=== PATIENT | male | born 1950 | race African-American/Black ===

== ENCOUNTER 2017-11-01 18:35 | Emergency (ER) | payer BC, MEDICARE ==
[~2017-11-01] VITALS: Ht 182.9 cm; Wt 79.0 kg
[2017-11-01 19:23] VITALS: BP 120/64
== END 2017-11-02 | disposition left against medical advice (07) ==
LOC: ER 18:35
DX: J11.1 Influenza due to unidentified influenza virus with other respiratory manifestations (principal); Z53.21 Procedure and treatment not carried out due to patient leaving prior to being seen by health care provider

== ENCOUNTER 2022-10-04 22:10 | Inpatient (IN) | payer MEDICARE ==
[~2022-10-04] VITALS: Ht 182.9 cm; Wt 67.4 kg
[2022-10-04 23:48] LABS: BASOPHILS % 0.6 % (0.0-2.0); EOSINOPHILS % 1.5 % (0.0-5.0); HEMATOCRIT. 21.5 % (42.0-52.0); HEMOGLOBIN. 7.3 g/dL (14.0-18.0); LYMPHOCYTES % 9.3 % (20.0-50.0); MEAN CORPUSCULAR HEMOGLOBIN 31.2 pg (28.0-32.0); MEAN CORPUSCULAR VOLUME 91.4 fL (80.0-94.0); MEAN PLATELET VOLUME 7.2 fl (7.4-10.4); MONOCYTES % 7.7 % (2.0-8.0); NEUTROPHILS % 80.9 % (40.0-76.0); PLATELET 217 x1000/uL (130-400); RED BLOOD CELL COUNT 2.35 mill/uL (4.7-6.1); RED CELL DISTRIBUTION WIDTH 15.4 % (11.6-14.6)
[2022-10-05] VITALS (14 sets, daily range): BP systolic 101–126; BP diastolic 57–86
[2022-10-05] MEDS ORDERED: CLONIDINE 0.1MG TABLET PO PRN (05:15)
[2022-10-05] MEDS ORDERED: ONDANSETRON HCL 4MG/2ML INJ IV PRN (05:15)
[2022-10-05] MEDS ORDERED: HYDROCODONE/ACETAMINOPHEN 5/325MG TABLET PO PRN (05:15)
[2022-10-05] MEDS ORDERED: DOCUSATE SODIUM 100MG CAPSULE PO PRN (05:15)
[2022-10-05] MEDS ORDERED: MAGNESIUM/ALUMINUM HYDROXIDE/SIMETHICONE 30ML UDC PO PRN (05:15)
[2022-10-05] MEDS ORDERED: IPRATROPIUM/ALBUTEROL 0.5-3(2.5)MG/3ML NEB HHN PRN (05:15)
[2022-10-05] MEDS ORDERED: ACETAMINOPHEN 325MG TABLET PO PRN ×2 (05:15)
[2022-10-05] MEDS ORDERED: GUAIFENESIN 200MG/10ML SUGAR FREE UDC PO PRN (05:15)
[2022-10-05] MEDS ORDERED: NALOXONE HCL 0.4MG/ML VIAL IV PRN (06:00)
[2022-10-05] MEDS ORDERED: FAMOTIDINE 20MG TABLET PO NR (09:36)
[2022-10-05 12:55] LABS: INR 1.1; PROTHROMBIN TIME 11.5 sec (9.6-11.0)
[2022-10-05] MEDS ORDERED: FAMOTIDINE 20MG TABLET PO SCH (13:00)
[2022-10-05 13:25] LABS: FERRITIN 253 ng/mL (22-322)
[2022-10-05 13:37] LABS: HEPATITIS B SURFACE ANTIGEN NEGATIVE
[2022-10-05 19:55] LABS: CHLORIDE 100 mEq/L (98-107)
[2022-10-05 20:36] LABS: CHLORIDE 104 mEq/L (98-107)
[2022-10-05 20:53] LABS: TOTAL IRON BINDING CAPACITY 183 ug/dL (250-450)
[2022-10-05 22:00] LABS: VITAMIN B12 SERUM 1208 pg/mL (211-911)
[2022-10-05] MEDS ORDERED: FERR325T6 PO (23:34)
[2022-10-05] MEDS ORDERED: TOPUD PO (23:34)
[2022-10-05] MEDS ORDERED: CALC667C PO (23:34)
[2022-10-05] MEDS ORDERED: ACET-2708 MT (23:34)
[2022-10-05] MEDS ORDERED: PRED15SO23 PO (23:34)
[2022-10-05] MEDS ORDERED: CLON0.1T PO (23:34)
[2022-10-05] MEDS ORDERED: MEMA10TA55 PO (23:34)
[2022-10-05] MEDS ORDERED: IPRA3AMP31 IH (23:34)
[2022-10-05] MEDS ORDERED: AZAT50TA18 PO (23:34)
[2022-10-05] MEDS ORDERED: FAMO-135 PO (23:34)
[2022-10-05] MEDS ORDERED: RISP1 PO (23:34)
[2022-10-06] VITALS (18 sets, daily range): BP systolic 92–120; BP diastolic 51–78
[2022-10-06 04:25] LABS: LYMPHOCYTES % 14.6 % (20.0-50.0); MEAN CORPUSCULAR HEMOGLOBIN 30.6 pg (28.0-32.0); MEAN CORPUSCULAR VOLUME 90.4 fL (80.0-94.0); MEAN PLATELET VOLUME 7.2 fl (7.4-10.4); MONOCYTES % 6.9 % (2.0-8.0); NEUTROPHILS % 72.5 % (40.0-76.0); PLATELET 206 x1000/uL (130-400); RED BLOOD CELL COUNT 1.53 mill/uL (4.7-6.1); RED CELL DISTRIBUTION WIDTH 15.5 % (11.6-14.6)
[2022-10-06 04:46] LABS: HEMATOCRIT. 13.8 % (42.0-52.0); HEMOGLOBIN. 4.7 g/dL (14.0-18.0)
[2022-10-06 07:48] LABS: CHLORIDE 106 mEq/L (98-107)
[2022-10-06] MEDS: FAMOTIDINE 20MG TABLET PO SCH (08:28)
[2022-10-06 19:26] LABS: *AMPHETAMINES SCREEN URINE NEGATIVE (NEGATIVE); *BARBITURATES SCREEN URINE NEGATIVE (NEGATIVE); *BENZODIAZEPINES SCREEN URINE NEGATIVE (NEGATIVE); *COCAINE SCREEN URINE NEGATIVE (NEGATIVE); CANNABINOID URINE SCREEN NEGATIVE (NEGATIVE); METHADONE URINE SCREEN NEGATIVE (NEGATIVE); OPIATES URINE SCREEN NEGATIVE (NEGATIVE); PHENCYCLIDINE URINE SCREEN NEGATIVE (NEGATIVE)
[2022-10-06 21:13] LABS: HEMATOCRIT 18.4 % (42.0-52.0); HEMOGLOBIN 6.4 g/dL (14.0-18.0)
[2022-10-07] VITALS (16 sets, daily range): BP systolic 101–146; BP diastolic 60–86
[2022-10-07 02:51] LABS: HEMATOCRIT 23.2 % (42.0-52.0); HEMOGLOBIN 7.8 g/dL (14.0-18.0)
[2022-10-07 03:03] LABS: INR 1.1; PROTHROMBIN TIME 11.6 sec (9.6-11.0)
[2022-10-07] MEDS: FAMOTIDINE 20MG TABLET PO SCH (08:28)
[2022-10-07 09:22] LABS: BASOPHILS % 0.8 % (0.0-2.0); EOSINOPHILS % 6.1 % (0.0-5.0); HEMATOCRIT. 24.7 % (42.0-52.0); HEMOGLOBIN. 8.6 g/dL (14.0-18.0); LYMPHOCYTES % 12.3 % (20.0-50.0); MEAN CORPUSCULAR HEMOGLOBIN 30.7 pg (28.0-32.0); MEAN CORPUSCULAR VOLUME 88.4 fL (80.0-94.0); MEAN PLATELET VOLUME 6.8 fl (7.4-10.4); MONOCYTES % 6.8 % (2.0-8.0); PLATELET 215 x1000/uL (130-400); RED CELL DISTRIBUTION WIDTH 15.8 % (11.6-14.6)
[2022-10-07 09:57] LABS: PHOSPHORUS 3.4 mg/dL (2.5-4.9)
[2022-10-07] MEDS ORDERED: BISACODYL 10MG SUPP PR NR (14:00)
[2022-10-07] MEDS: LACTULOSE 20G/30ML UDC PO SCH ×3 (14:00→21:33)
[2022-10-07 16:18] LABS: HEMATOCRIT 24.2 % (42.0-52.0); HEMOGLOBIN 8.5 g/dL (14.0-18.0)
[2022-10-07] MEDS: RISPERIDONE 1MG TABLET PO SCH (21:00)
[2022-10-08] VITALS: BP 128/71
[2022-10-08] MEDS: LACTULOSE 20G/30ML UDC PO SCH ×3 (06:00→22:00)
[2022-10-08 08:00] VITALS: BP 178/86
[2022-10-08] MEDS: RISPERIDONE 1MG TABLET PO SCH ×2 (09:05→21:00)
[2022-10-08] MEDS: FAMOTIDINE 20MG TABLET PO SCH (09:05)
[2022-10-08 12:00] VITALS: BP 158/86
[2022-10-08 16:00] VITALS: BP 152/84
[2022-10-08] MEDS: VALPROIC ACID 250MG CAPSULE PO SCH (17:26)
[2022-10-08] MEDS ORDERED: TRAZODONE HCL 50MG TABLET PO SCH (21:00)
[2022-10-08] MEDS: AMLODIPINE 5MG TABLET PO SCH (21:00)
[2022-10-09] VITALS: BP 162/97
[2022-10-09 04:00] VITALS: BP 134/77
[2022-10-09] MEDS: LACTULOSE 20G/30ML UDC PO SCH ×2 (05:52→14:00)
[2022-10-09 06:30] VITALS: BP 137/73
[2022-10-09 08:00] VITALS: BP 158/86
[2022-10-09] MEDS: FAMOTIDINE 20MG TABLET PO SCH (09:24)
[2022-10-09] MEDS: AMLODIPINE 5MG TABLET PO SCH (09:25)
[2022-10-09] MEDS: VALPROIC ACID 250MG CAPSULE PO SCH (09:25)
[2022-10-09] MEDS: RISPERIDONE 1MG TABLET PO SCH (09:25)
[2022-10-09] MEDS ORDERED: VALP250C3 PO (11:16)
[2022-10-09] MEDS ORDERED: AZAT50TA18 PO (11:16)
[2022-10-09] MEDS ORDERED: SULF1TAB48 PO (11:16)
[2022-10-09] MEDS ORDERED: P20 PO (11:16)
[2022-10-09] MEDS ORDERED: AMLO5TAB88 PO (11:16)
[2022-10-09 12:00] VITALS: BP_SYST 147; BP_SYST 157; BP_DIAS 89
[2022-10-09 14:38] VITALS: BP 147/59
== END 2022-10-09 15:45 | DRG 377 ==
LOC: ER 22:10 → 8WST 10-05 01:46
PROVIDERS: ADMIT Internal Medicine; ATTEND Internal Medicine
PROC: 5A1D70Z Performance of Urinary Filtration, Intermittent, Less than 6 Hours Per Day (ICD-10-PCS; principal; 2022-10-05)
PROC: 30233N1 Transfusion of Nonautologous Red Blood Cells into Peripheral Vein, Percutaneous Approach (ICD-10-PCS; 2022-10-06)
PROC: 30233N1 Transfusion of Nonautologous Red Blood Cells into Peripheral Vein, Percutaneous Approach (ICD-10-PCS; 2022-10-06)
PROC: 5A1D70Z Performance of Urinary Filtration, Intermittent, Less than 6 Hours Per Day (ICD-10-PCS; 2022-10-07)
DX: K57.31 Diverticulosis of large intestine without perforation or abscess with bleeding (principal); E43 Unspecified severe protein-calorie malnutrition; N18.6 End stage renal disease; C78.5 Secondary malignant neoplasm of large intestine and rectum; C25.9 Malignant neoplasm of pancreas, unspecified; I50.32 Chronic diastolic (congestive) heart failure; Z68.1 Body mass index [BMI] 19.9 or less, adult; I82.412 Acute embolism and thrombosis of left femoral vein; E11.52 Type 2 diabetes mellitus with diabetic peripheral angiopathy with gangrene; I13.2 Hypertensive heart and chronic kidney disease with heart failure and with stage 5 chronic kidney disease, or end stage renal disease; N17.9 Acute kidney failure, unspecified; I96 Gangrene, not elsewhere classified; F17.210 Nicotine dependence, cigarettes, uncomplicated; E11.22 Type 2 diabetes mellitus with diabetic chronic kidney disease; F19.10 Other psychoactive substance abuse, uncomplicated; K76.89 Other specified diseases of liver; D63.1 Anemia in chronic kidney disease; F03.90 Unspecified dementia, unspecified severity, without behavioral disturbance, psychotic disturbance, mood disturbance, and anxiety; F10.10 Alcohol abuse, uncomplicated; G47.00 Insomnia, unspecified; I25.10 Atherosclerotic heart disease of native coronary artery without angina pectoris; K59.00 Constipation, unspecified; J44.9 Chronic obstructive pulmonary disease, unspecified; N20.0 Calculus of kidney; Z99.2 Dependence on renal dialysis; Z79.899 Other long term (current) drug therapy; Z78.1 Physical restraint status
CPT/HCPCS: 36415; 71045; 74176; 74181; 80048; 80053; 80076; 80305; 82105; 82140; 82607; 82728; 82746; 83540; 83550; 83735; 83880; 84100; 85014; 85018; 85025; 85044; 85049; 85384; 86301; 86705; 86709; 86803; 86850; 86900; 86920; 87340; 87426; 90935; 93005; 99285; C9803; P9016

== ENCOUNTER 2022-10-11 15:47 | Inpatient (IN) | payer MEDICARE ==
[~2022-10-11] VITALS: Ht 182.9 cm; Wt 63.8 kg
[~2022-10-11 15:47] MED LIST: ACET-2708 MT; AMLO5TAB88 PO; AZAT50TA18 PO; CALC667C PO; CLON0.1T PO; FAMO-135 PO; FERR325T6 PO; IPRA3AMP31 IH; MEMA10TA55 PO; P20 PO; RISP1 PO; SULF1TAB48 PO; VALP250C3 PO
[2022-10-11 16:30] LABS: HEMATOCRIT 23.5 % (42.0-52.0); HEMOGLOBIN 8.1 g/dL (14.0-18.0); MEAN CORPUSCULAR HEMOGLOBIN 30.6 pg (28.0-32.0); PLATELET 291 x1000/uL (130-400); RED BLOOD CELL COUNT 2.63 mill/uL (4.7-6.1)
[2022-10-11] MEDS ORDERED: CLONIDINE 0.1MG TABLET PO PRN (22:00)
[2022-10-11] MEDS ORDERED: ONDANSETRON HCL 4MG/2ML INJ IV PRN (22:00)
[2022-10-11] MEDS ORDERED: IPRATROPIUM/ALBUTEROL 0.5-3(2.5)MG/3ML NEB HHN PRN (22:00)
[2022-10-11] MEDS ORDERED: ACETAMINOPHEN 325MG TABLET PO PRN ×2 (22:00)
[2022-10-11] MEDS ORDERED: HYDROCODONE/ACETAMINOPHEN 5/325MG TABLET PO PRN (22:00)
[2022-10-11] MEDS ORDERED: DOCUSATE SODIUM 100MG CAPSULE PO PRN (22:00)
[2022-10-11] MEDS ORDERED: MAGNESIUM/ALUMINUM HYDROXIDE/SIMETHICONE 30ML UDC PO PRN (22:00)
[2022-10-12] VITALS (17 sets, daily range): BP systolic 96–181; BP diastolic 59–121
[2022-10-12 02:46] LABS: CLARITY URINE CLOUDY (CLEAR); COLOR URINE YELLOW (YELLOW); KETONES URINE TRACE (NEGATIVE); LEUKOCYTE ESTERASE URINE TRACE (NEGATIVE); NITRITE URINE NEGATIVE (NEGATIVE); OCCULT BLOOD URINE 3+ (NEGATIVE); PH URINE 7.5 (4.5-8.0); PROTEIN URINE 3+ (NEGATIVE); SPECIFIC GRAVITY URINE 1.014 (1.005-1.030)
[2022-10-12 03:05] LABS: *AMPHETAMINES SCREEN URINE NEGATIVE (NEGATIVE); *BARBITURATES SCREEN URINE NEGATIVE (NEGATIVE); *BENZODIAZEPINES SCREEN URINE NEGATIVE (NEGATIVE); *COCAINE SCREEN URINE NEGATIVE (NEGATIVE); CANNABINOID URINE SCREEN NEGATIVE (NEGATIVE); METHADONE URINE SCREEN NEGATIVE (NEGATIVE); OPIATES URINE SCREEN NEGATIVE (NEGATIVE); PHENCYCLIDINE URINE SCREEN NEGATIVE (NEGATIVE)
[2022-10-12] MEDS ORDERED: LORAZEPAM 0.5MG TABLET PO NR (03:15)
[2022-10-12] MEDS: GUAIFENESIN 200MG/10ML SUGAR FREE UDC PO PRN ×2 (03:23→15:57)
[2022-10-12 04:44] LABS: CHLORIDE 109 mEq/L (98-107)
[2022-10-12 05:00] LABS: T4 FREE 1.09 ng/dL (0.76-1.46)
[2022-10-12 05:01] LABS: BASOPHILS % 1.3 % (0.0-2.0); EOSINOPHILS % 4.2 % (0.0-5.0); HEMATOCRIT. 22.5 % (42.0-52.0); HEMOGLOBIN. 7.6 g/dL (14.0-18.0); LYMPHOCYTES % 13.1 % (20.0-50.0); MEAN CORPUSCULAR HEMOGLOBIN 30.4 pg (28.0-32.0); MEAN CORPUSCULAR VOLUME 90.3 fL (80.0-94.0); MEAN PLATELET VOLUME 7.7 fl (7.4-10.4); MONOCYTES % 9.8 % (2.0-8.0); NEUTROPHILS % 71.6 % (40.0-76.0); PLATELET 259 x1000/uL (130-400); RED CELL DISTRIBUTION WIDTH 16.3 % (11.6-14.6)
[2022-10-12] MEDS ORDERED: NALOXONE HCL 0.4MG/ML VIAL IV PRN (11:00)
[2022-10-12] MEDS: VALPROIC ACID 250MG CAPSULE PO SCH (19:46)
[2022-10-12] MEDS: CEFTRIAXONE 1,000 MG in DEXTROSE 5% WATER 50 ML IV SCH (20:00)
[2022-10-12] MEDS ORDERED: EPOETIN ALFA-EPBX 4,000 UNIT/ML VIAL SUBCUT SCH (21:00)
[2022-10-12] MEDS: TRAZODONE HCL 50MG TABLET PO SCH (21:24)
[2022-10-13 04:04] VITALS: BP 108/55
[2022-10-13 06:28] LABS: EOSINOPHILS % 2.3 % (0.0-5.0); HEMATOCRIT. 24.3 % (42.0-52.0); HEMOGLOBIN. 8.3 g/dL (14.0-18.0); LYMPHOCYTES % 11.2 % (20.0-50.0); MEAN CORPUSCULAR HEMOGLOBIN 30.3 pg (28.0-32.0); MEAN CORPUSCULAR VOLUME 88.7 fL (80.0-94.0); MEAN PLATELET VOLUME 6.8 fl (7.4-10.4); NEUTROPHILS % 75.5 % (40.0-76.0); PLATELET 226 x1000/uL (130-400); RED BLOOD CELL COUNT 2.74 mill/uL (4.7-6.1); RED CELL DISTRIBUTION WIDTH 15.6 % (11.6-14.6)
[2022-10-13 07:44] LABS: PHOSPHORUS 5.2 mg/dL (2.5-4.9)
[2022-10-13 07:48] LABS: HEPATITIS B SURFACE ANTIGEN NEGATIVE
[2022-10-13 08:00] VITALS: BP 148/66
[2022-10-13] MEDS: VALPROIC ACID 250MG CAPSULE PO SCH (08:24)
[2022-10-13] MEDS: AMLODIPINE 5MG TABLET PO SCH ×2 (08:24→08:25)
[2022-10-13 12:00] VITALS: BP 127/76
[2022-10-13 16:00] VITALS: BP 103/61
[2022-10-13 20:00] VITALS: BP 119/75
[2022-10-13] MEDS: CEFTRIAXONE 1,000 MG in DEXTROSE 5% WATER 50 ML IV SCH (20:46)
[2022-10-13] MEDS: TRAZODONE HCL 50MG TABLET PO SCH (20:46)
[2022-10-14] VITALS (11 sets, daily range): BP systolic 101–140; BP diastolic 56–94
[2022-10-14 06:28] LABS: BASOPHILS % 0.8 % (0.0-2.0); EOSINOPHILS % 2.6 % (0.0-5.0); HEMATOCRIT. 22.3 % (42.0-52.0); HEMOGLOBIN. 7.4 g/dL (14.0-18.0); LYMPHOCYTES % 13.6 % (20.0-50.0); MEAN CORPUSCULAR HEMOGLOBIN 29.5 pg (28.0-32.0); MEAN CORPUSCULAR VOLUME 89.2 fL (80.0-94.0); MEAN PLATELET VOLUME 6.7 fl (7.4-10.4); MONOCYTES % 10.4 % (2.0-8.0); NEUTROPHILS % 72.6 % (40.0-76.0); PLATELET 221 x1000/uL (130-400); RED CELL DISTRIBUTION WIDTH 15.9 % (11.6-14.6)
[2022-10-14 06:31] LABS: PHOSPHORUS 6.2 mg/dL (2.5-4.9)
[2022-10-14] MEDS: VALPROIC ACID 250MG CAPSULE PO SCH (12:14)
[2022-10-14] MEDS: AMLODIPINE 5MG TABLET PO SCH (12:15)
== END 2022-10-14 14:00 | DRG 70 ==
LOC: ER 15:47 → MICUSO 19:41 → EDBEDREQ 19:45 → EDBEDREQTM 19:45 → 3WST 10-12 01:39
PROVIDERS: ADMIT Internal Medicine; ATTEND Internal Medicine
PROC: 5A1D70Z Performance of Urinary Filtration, Intermittent, Less than 6 Hours Per Day (ICD-10-PCS; principal; 2022-10-12)
PROC: 5A1D70Z Performance of Urinary Filtration, Intermittent, Less than 6 Hours Per Day (ICD-10-PCS; 2022-10-14)
DX: G93.41 Metabolic encephalopathy (principal); E43 Unspecified severe protein-calorie malnutrition; N18.6 End stage renal disease; N39.0 Urinary tract infection, site not specified; I13.2 Hypertensive heart and chronic kidney disease with heart failure and with stage 5 chronic kidney disease, or end stage renal disease; I96 Gangrene, not elsewhere classified; M31.30 Wegener's granulomatosis without renal involvement; N17.9 Acute kidney failure, unspecified; I50.32 Chronic diastolic (congestive) heart failure; K76.89 Other specified diseases of liver; K86.9 Disease of pancreas, unspecified; F03.90 Unspecified dementia, unspecified severity, without behavioral disturbance, psychotic disturbance, mood disturbance, and anxiety; K21.9 Gastro-esophageal reflux disease without esophagitis; F17.210 Nicotine dependence, cigarettes, uncomplicated; I77.82 Antineutrophilic cytoplasmic antibody [ANCA] vasculitis; D63.1 Anemia in chronic kidney disease; F10.10 Alcohol abuse, uncomplicated; F14.90 Cocaine use, unspecified, uncomplicated; Z82.49 Family history of ischemic heart disease and other diseases of the circulatory system; Z79.899 Other long term (current) drug therapy; Z99.2 Dependence on renal dialysis; Z91.15 Patient's noncompliance with renal dialysis
CPT/HCPCS: 36415; 71045; 80048; 80053; 80305; 81003; 83735; 84100; 84439; 84443; 85025; 85027; 86705; 86709; 86803; 87340; 87426; 90935; 99291; J0696; J0885; J2405; J7060

== ENCOUNTER 2022-11-08 19:54 | Inpatient (IN) | payer MEDICARE ==
[~2022-11-08] VITALS: Ht 182.9 cm; Wt 66.7 kg
[2022-11-08 21:37] LABS: BASOPHILS % 0.8 % (0.0-2.0); EOSINOPHILS % 6.1 % (0.0-5.0); MEAN CORPUSCULAR HEMOGLOBIN 29.5 pg (28.0-32.0); MEAN CORPUSCULAR VOLUME 89.2 fL (80.0-94.0); MEAN PLATELET VOLUME 6.5 fl (7.4-10.4); MONOCYTES % 8.6 % (2.0-8.0); NEUTROPHILS % 55.5 % (40.0-76.0); PLATELET 251 x1000/uL (130-400); RED BLOOD CELL COUNT 2.37 mill/uL (4.7-6.1); RED CELL DISTRIBUTION WIDTH 18.1 % (11.6-14.6)
[2022-11-08 21:43] LABS: CHLORIDE 100 mEq/L (98-107)
[2022-11-08 21:44] LABS: HEMATOCRIT. 21.1 % (42.0-52.0)
[2022-11-08 21:45] LABS: PROTHROMBIN TIME 10.5 sec (9.6-11.0)
[2022-11-08] MEDS ORDERED: ONDANSETRON HCL 4MG/2ML INJ IV PRN (23:15)
[2022-11-08] MEDS ORDERED: MAGNESIUM/ALUMINUM HYDROXIDE/SIMETHICONE 30ML UDC PO PRN (23:15)
[2022-11-08] MEDS ORDERED: ACETAMINOPHEN 325MG TABLET PO PRN (23:15)
[2022-11-09] VITALS (15 sets, daily range): BP systolic 125–157; BP diastolic 64–91
[2022-11-09] MEDS: ACETAMINOPHEN 325MG TABLET PO PRN (04:12)
[2022-11-09 05:41] LABS: BASOPHILS % 0.8 % (0.0-2.0); EOSINOPHILS % 5.6 % (0.0-5.0); LYMPHOCYTES % 23.4 % (20.0-50.0); MEAN CORPUSCULAR HEMOGLOBIN 29.8 pg (28.0-32.0); MEAN CORPUSCULAR VOLUME 88.5 fL (80.0-94.0); MEAN PLATELET VOLUME 6.2 fl (7.4-10.4); MONOCYTES % 9.1 % (2.0-8.0); NEUTROPHILS % 61.1 % (40.0-76.0); PLATELET 252 x1000/uL (130-400); RED BLOOD CELL COUNT 2.25 mill/uL (4.7-6.1)
[2022-11-09 05:49] LABS: HEMATOCRIT. 19.9 % (42.0-52.0); HEMOGLOBIN. 6.7 g/dL (14.0-18.0)
[2022-11-09 05:52] LABS: TOTAL IRON BINDING CAPACITY 180 ug/dL (250-450)
[2022-11-09 06:02] LABS: T4 FREE 0.85 ng/dL (0.76-1.46)
[2022-11-09] MEDS ORDERED: SEVE800T25 PO (09:18)
[2022-11-09] MEDS ORDERED: LACT10SO30 MT (09:18)
[2022-11-09] MEDS ORDERED: TRAZ-251 PO (09:18)
[2022-11-09] MEDS ORDERED: NALOXONE HCL 0.4MG/ML VIAL IV PRN (09:30)
[2022-11-09] MEDS: AMLODIPINE 5MG TABLET PO SCH (10:06)
[2022-11-09] MEDS ORDERED: DIPHENHYDRAMINE 50MG/ML VIAL IV NR (13:30)
[2022-11-09 14:48] LABS: HEPATITIS B SURFACE ANTIGEN NEGATIVE
[2022-11-09] MEDS: EPOETIN ALFA-EPBX 4,000 UNIT/ML VIAL SUBCUT SCH (21:24)
[2022-11-09] MEDS: FAMOTIDINE 20MG TABLET PO SCH (21:25)
[2022-11-09] MEDS: TRAMADOL 50MG TABLET PO PRN (23:15)
[2022-11-10 01:20] LABS: MEAN CORPUSCULAR HEMOGLOBIN 29.7 pg (28.0-32.0); MEAN CORPUSCULAR VOLUME 88.7 fL (80.0-94.0); PLATELET 256 x1000/uL (130-400); RED BLOOD CELL COUNT 3.05 mill/uL (4.7-6.1); RED CELL DISTRIBUTION WIDTH 17.1 % (11.6-14.6)
[2022-11-10 04:00] VITALS: BP 142/75
[2022-11-10 07:13] LABS: BASOPHILS % 0.6 % (0.0-2.0); EOSINOPHILS % 4.1 % (0.0-5.0); HEMATOCRIT. 24.9 % (42.0-52.0); HEMOGLOBIN. 8.3 g/dL (14.0-18.0); LYMPHOCYTES % 21.1 % (20.0-50.0); MEAN CORPUSCULAR HEMOGLOBIN 29.6 pg (28.0-32.0); MEAN PLATELET VOLUME 6.3 fl (7.4-10.4); NEUTROPHILS % 65.2 % (40.0-76.0); PLATELET 232 x1000/uL (130-400); RED CELL DISTRIBUTION WIDTH 16.9 % (11.6-14.6)
[2022-11-10 07:36] LABS: PHOSPHORUS 5.9 mg/dL (2.5-4.9)
[2022-11-10 08:00] VITALS: BP 152/83
[2022-11-10] MEDS: AMLODIPINE 5MG TABLET PO SCH (08:01)
[2022-11-10 12:00] VITALS: BP 153/82
[2022-11-10 16:55] LABS: VITAMIN B12 SERUM 592 pg/mL (211-911)
[2022-11-10] MEDS ORDERED: LORAZEPAM 2MG/ML CPJ IV NR (17:15)
[2022-11-10] MEDS ORDERED: HALOPERIDOL LACTATE 5MG/ML VIAL IM NR (18:00)
[2022-11-10 20:00] VITALS: BP 145/88
[2022-11-10] MEDS: FAMOTIDINE 20MG TABLET PO SCH (21:22)
[2022-11-10] MEDS: TRAMADOL 50MG TABLET PO PRN (22:43)
[2022-11-11] VITALS (12 sets, daily range): BP systolic 121–169; BP diastolic 74–89
[2022-11-11] MEDS: CLONIDINE 0.1MG TABLET PO PRN (00:14)
[2022-11-11] MEDS: ACETAMINOPHEN 325MG TABLET PO PRN (01:20)
[2022-11-11 09:54] LABS: PHOSPHORUS 5.5 mg/dL (2.5-4.9)
[2022-11-11 09:56] LABS: BASOPHILS % 0.6 % (0.0-2.0); EOSINOPHILS % 3.5 % (0.0-5.0); HEMATOCRIT. 23.8 % (42.0-52.0); LYMPHOCYTES % 18.9 % (20.0-50.0); MEAN CORPUSCULAR HEMOGLOBIN 29.6 pg (28.0-32.0); MEAN CORPUSCULAR VOLUME 88.2 fL (80.0-94.0); MEAN PLATELET VOLUME 6.2 fl (7.4-10.4); MONOCYTES % 8.2 % (2.0-8.0); NEUTROPHILS % 68.8 % (40.0-76.0); PLATELET 209 x1000/uL (130-400); RED BLOOD CELL COUNT 2.69 mill/uL (4.7-6.1); RED CELL DISTRIBUTION WIDTH 16.5 % (11.6-14.6)
[2022-11-11] MEDS: TRAMADOL 50MG TABLET PO PRN (10:34)
[2022-11-11] MEDS: AMLODIPINE 5MG TABLET PO SCH (10:35)
[2022-11-11] MEDS ORDERED: ALTEPLASE 2MG/VIAL ITC NR (14:00)
[2022-11-11 16:09] LABS: BASOPHILS % 0.9 % (0.0-2.0); EOSINOPHILS % 3.1 % (0.0-5.0); HEMATOCRIT. 25.1 % (42.0-52.0); HEMOGLOBIN. 8.3 g/dL (14.0-18.0); LYMPHOCYTES % 18.5 % (20.0-50.0); MEAN CORPUSCULAR HEMOGLOBIN 29.4 pg (28.0-32.0); MEAN CORPUSCULAR VOLUME 88.6 fL (80.0-94.0); MEAN PLATELET VOLUME 6.5 fl (7.4-10.4); MONOCYTES % 7.6 % (2.0-8.0); NEUTROPHILS % 69.9 % (40.0-76.0); PLATELET 227 x1000/uL (130-400); RED BLOOD CELL COUNT 2.83 mill/uL (4.7-6.1); RED CELL DISTRIBUTION WIDTH 16.5 % (11.6-14.6)
[2022-11-11] MEDS: EPOETIN ALFA-EPBX 4,000 UNIT/ML VIAL SUBCUT SCH (20:10)
[2022-11-11] MEDS: FAMOTIDINE 20MG TABLET PO SCH (20:10)
[2022-11-12] VITALS (13 sets, daily range): BP systolic 102–170; BP diastolic 65–90
[2022-11-12] MEDS ORDERED: SODIUM CHLORIDE 0.45% 1,000 ML IV ONE
[2022-11-12 07:02] LABS: BASOPHILS % 0.9 % (0.0-2.0); EOSINOPHILS % 3.2 % (0.0-5.0); HEMATOCRIT. 23.3 % (42.0-52.0); HEMOGLOBIN. 7.7 g/dL (14.0-18.0); LYMPHOCYTES % 18.4 % (20.0-50.0); MEAN CORPUSCULAR HEMOGLOBIN 29.2 pg (28.0-32.0); MEAN CORPUSCULAR VOLUME 88.4 fL (80.0-94.0); MEAN PLATELET VOLUME 6.5 fl (7.4-10.4); MONOCYTES % 9.5 % (2.0-8.0); PLATELET 222 x1000/uL (130-400); RED BLOOD CELL COUNT 2.63 mill/uL (4.7-6.1); RED CELL DISTRIBUTION WIDTH 16.4 % (11.6-14.6)
[2022-11-12 07:04] LABS: PHOSPHORUS 6.9 mg/dL (2.5-4.9)
[2022-11-12] MEDS ORDERED: LIDOCAINE HCL 1% 10 MG/ML 10ML VIAL ONE (07:24)
[2022-11-12] MEDS ORDERED: POLYMYXIN B SULFATE 500000 UNITS/VIAL ONE (07:24)
[2022-11-12] MEDS ORDERED: BUPIVACAINE HCL/PF 0.5% (5MG/ML) 10ML ONE (07:25)
[2022-11-12] MEDS ORDERED: CEFAZOLIN SODIUM 1000MG/VIAL ONE (07:47)
[2022-11-12] MEDS ORDERED: MIDAZOLAM HCL 2 MG/2 ML VIAL ONE ×2 (07:48→07:57)
[2022-11-12] MEDS ORDERED: FENTANYL CITRATE/PF 50MCG/ML 2ML VIAL ONE ×3 (07:48→09:20)
[2022-11-12] MEDS ORDERED: PROPOFOL 200MG/20ML VIAL IV ONE ×2 (07:49→09:02)
[2022-11-12] MEDS ORDERED: LIDOCAINE HCL 1% 20ML VIAL (Pyxis) INJ ONE (08:10)
[2022-11-12] MEDS ORDERED: LABETALOL 5MG/ML SYR 20 MG/4 ML SYRINGE IV PRN (08:30)
[2022-11-12] MEDS ORDERED: HYDROMORPHONE HCL/PF 2MG/ML CPJ IV PRN (08:30)
[2022-11-12] MEDS ORDERED: MEPERIDINE HCL/PF 25MG/ML CPJ IV PRN (08:30)
[2022-11-12] MEDS ORDERED: ONDANSETRON HCL 4MG/2ML INJ IV PRN (08:30)
[2022-11-12 17:00] LABS: HEMATOCRIT 22.1 % (42.0-52.0); HEMOGLOBIN 7.2 g/dL (14.0-18.0)
[2022-11-12] MEDS: FAMOTIDINE 20MG TABLET PO SCH ×2 (20:48→20:51)
[2022-11-12] MEDS: CLONIDINE 0.1MG TABLET PO PRN ×2 (20:48→20:51)
[2022-11-12] MEDS: TRAMADOL 50MG TABLET PO PRN (23:12)
[2022-11-13] VITALS (10 sets, daily range): BP systolic 110–161; BP diastolic 61–109
[2022-11-13] MEDS: CLONIDINE 0.1MG TABLET PO PRN (04:56)
[2022-11-13 06:46] LABS: BASOPHILS % 0.6 % (0.0-2.0); EOSINOPHILS % 0.5 % (0.0-5.0); LYMPHOCYTES % 19.5 % (20.0-50.0); MEAN CORPUSCULAR HEMOGLOBIN 29.7 pg (28.0-32.0); MEAN CORPUSCULAR VOLUME 86.8 fL (80.0-94.0); MEAN PLATELET VOLUME 6.5 fl (7.4-10.4); MONOCYTES % 12.3 % (2.0-8.0); NEUTROPHILS % 67.1 % (40.0-76.0); PLATELET 210 x1000/uL (130-400); RED BLOOD CELL COUNT 2.27 mill/uL (4.7-6.1); RED CELL DISTRIBUTION WIDTH 16.4 % (11.6-14.6)
[2022-11-13 06:59] LABS: HEMATOCRIT. 19.7 % (42.0-52.0); HEMOGLOBIN. 6.7 g/dL (14.0-18.0)
[2022-11-13] MEDS ORDERED: LORAZEPAM 2MG/ML CPJ IV PRN (09:00)
[2022-11-13] MEDS: AMLODIPINE 5MG TABLET PO SCH (09:00)
[2022-11-13] MEDS: QUETIAPINE FUMARATE 25MG TABLET PO SCH (09:27)
[2022-11-13] MEDS: PIPERACILLIN/TAZOBACTAM 3.375 G in DEXTROSE 5% WATER 50 ML IV SCH ×2 (14:23→23:51)
[2022-11-13] MEDS: CALCIUM ACETATE 667MG CAPSULE PO SCH (17:46)
[2022-11-13] MEDS: FAMOTIDINE 20MG TABLET PO SCH (22:06)
[2022-11-13] MEDS: TRAMADOL 50MG TABLET PO PRN (22:06)
[2022-11-14] VITALS: BP 166/84
[2022-11-14] MEDS: ACETAMINOPHEN 325MG TABLET PO PRN (02:05)
[2022-11-14 04:00] VITALS: BP 111/87
[2022-11-14] MEDS: CALCIUM ACETATE 667MG CAPSULE PO SCH ×2 (06:40→12:25)
[2022-11-14 06:48] LABS: BASOPHILS % 0.4 % (0.0-2.0); EOSINOPHILS % 3.2 % (0.0-5.0); HEMATOCRIT. 21.9 % (42.0-52.0); HEMOGLOBIN. 7.5 g/dL (14.0-18.0); LYMPHOCYTES % 15.1 % (20.0-50.0); MEAN CORPUSCULAR HEMOGLOBIN 29.7 pg (28.0-32.0); MEAN CORPUSCULAR VOLUME 86.3 fL (80.0-94.0); MEAN PLATELET VOLUME 6.4 fl (7.4-10.4); MONOCYTES % 10.4 % (2.0-8.0); NEUTROPHILS % 70.9 % (40.0-76.0); PLATELET 217 x1000/uL (130-400); RED BLOOD CELL COUNT 2.53 mill/uL (4.7-6.1); RED CELL DISTRIBUTION WIDTH 15.5 % (11.6-14.6)
[2022-11-14 08:00] VITALS: BP 152/86
[2022-11-14] MEDS: AMLODIPINE 5MG TABLET PO SCH (08:54)
[2022-11-14] MEDS: PIPERACILLIN/TAZOBACTAM 3.375 G in DEXTROSE 5% WATER 50 ML IV SCH (08:54)
[2022-11-14] MEDS: QUETIAPINE FUMARATE 25MG TABLET PO SCH (08:54)
[2022-11-14 12:00] VITALS: BP 136/81
[2022-11-14] MEDS ORDERED: LEVO-65 PO (14:15)
[2022-11-14 14:22] VITALS: BP 136/81
[2022-11-17 15:08] LABS: BARBITURATE SCREEN Negative ug/mL (Cutoff:0.1); BENZODIAZEPINE SCREEN Negative ng/mL (Cutoff:20); OPIATES SCREEN Negative ng/mL (Cutoff:5); PHENCYCLIDINE SCREEN Negative ng/mL (Cutoff:8)
== END 2022-11-14 16:00 | DRG 239 ==
LOC: ER 20:20 → MICUSO 22:05 → EDBEDREQTM 22:15 → EDBEDREQ 22:15 → 8WST 11-09 09:27
PROVIDERS: ADMIT Internal Medicine; ATTEND Internal Medicine
PROC: 5A1D70Z Performance of Urinary Filtration, Intermittent, Less than 6 Hours Per Day (ICD-10-PCS; 2022-11-09)
PROC: 30233N1 Transfusion of Nonautologous Red Blood Cells into Peripheral Vein, Percutaneous Approach (ICD-10-PCS; 2022-11-09)
PROC: 5A1D70Z Performance of Urinary Filtration, Intermittent, Less than 6 Hours Per Day (ICD-10-PCS; 2022-11-11)
PROC: 0Y6N0Z4 Detachment at Left Foot, Complete 1st Ray, Open Approach (ICD-10-PCS; principal; 2022-11-12)
PROC: 0Y6N0Z8 Detachment at Left Foot, Complete 5th Ray, Open Approach (ICD-10-PCS; 2022-11-12)
PROC: 5A1D70Z Performance of Urinary Filtration, Intermittent, Less than 6 Hours Per Day (ICD-10-PCS; 2022-11-12)
DX: E11.52 Type 2 diabetes mellitus with diabetic peripheral angiopathy with gangrene (principal); E43 Unspecified severe protein-calorie malnutrition; N18.6 End stage renal disease; I13.2 Hypertensive heart and chronic kidney disease with heart failure and with stage 5 chronic kidney disease, or end stage renal disease; I96 Gangrene, not elsewhere classified; N17.9 Acute kidney failure, unspecified; Z68.1 Body mass index [BMI] 19.9 or less, adult; I50.32 Chronic diastolic (congestive) heart failure; I77.82 Antineutrophilic cytoplasmic antibody [ANCA] vasculitis; M10.9 Gout, unspecified; Z20.822 Contact with and (suspected) exposure to COVID-19; F03.90 Unspecified dementia, unspecified severity, without behavioral disturbance, psychotic disturbance, mood disturbance, and anxiety; K21.9 Gastro-esophageal reflux disease without esophagitis; E11.22 Type 2 diabetes mellitus with diabetic chronic kidney disease; F17.210 Nicotine dependence, cigarettes, uncomplicated; D63.8 Anemia in other chronic diseases classified elsewhere; K59.00 Constipation, unspecified; Z82.49 Family history of ischemic heart disease and other diseases of the circulatory system; Z79.4 Long term (current) use of insulin; Z99.2 Dependence on renal dialysis
CPT/HCPCS: 36415; 73630; 73721; 80048; 80053; 80061; 80307; 82607; 82728; 82746; 83036; 83540; 83550; 83735; 84100; 84439; 84443; 85014; 85018; 85025; 85027; 85044; 86705; 86709; 86803; 86850; 86900; 86920; 87070; 87075; 87077; 87186; 87340; 87426; 88311; 90935; 93005; 93970; 99291; J0690; J0885; J1170; J1200; J1630; J2060; J2250; J2543; J2704; J2997; J3010; J3490; J7060; P9016

== ENCOUNTER 2022-11-22 18:56 | Inpatient (IN) | payer MEDICARE ==
[~2022-11-22] VITALS: Ht 182.9 cm; Wt 58.1 kg
[~2022-11-22 18:56] MED LIST changes: +LACT10SO30 MT; +LEVO-65 PO; +SEVE800T25 PO; +TRAZ-251 PO
[2022-11-22 20:08] LABS: BASOPHILS % 0.6 % (0.0-2.0); EOSINOPHILS % 2.1 % (0.0-5.0); HEMOGLOBIN. 7.5 g/dL (14.0-18.0); LYMPHOCYTES % 15.9 % (20.0-50.0); MEAN CORPUSCULAR HEMOGLOBIN 27.5 pg (28.0-32.0); MEAN CORPUSCULAR VOLUME 84.3 fL (80.0-94.0); MEAN PLATELET VOLUME 6.3 fl (7.4-10.4); MONOCYTES % 7.5 % (2.0-8.0); NEUTROPHILS % 73.9 % (40.0-76.0); PLATELET 344 x1000/uL (130-400); RED BLOOD CELL COUNT 2.72 mill/uL (4.7-6.1)
[2022-11-22 20:16] LABS: CHLORIDE 100 mEq/L (98-107)
[2022-11-22] MEDS ORDERED: HYDRALAZINE 20MG/ML VIAL IV PRN (23:45)
[2022-11-23] MEDS: AMLODIPINE 10MG TABLET PO SCH (10:15)
[2022-11-23] MEDS ORDERED: ACETAMINOPHEN 325MG TABLET PO PRN (10:15)
[2022-11-23] MEDS ORDERED: ONDANSETRON HCL 4MG/2ML INJ IV PRN (10:15)
[2022-11-23] MEDS ORDERED: HYDRALAZINE HCL 100MG TABLET PO NR (17:15)
[2022-11-23] MEDS: HYDRALAZINE HCL 100MG TABLET PO SCH (22:00)
[2022-11-24] VITALS (10 sets, daily range): BP systolic 123–184; BP diastolic 72–104
[2022-11-24] MEDS: HYDRALAZINE HCL 100MG TABLET PO SCH ×3 (06:35→21:15)
[2022-11-24 07:04] LABS: BASOPHILS % 0.5 % (0.0-2.0); EOSINOPHILS % 4.2 % (0.0-5.0); HEMATOCRIT. 22.1 % (42.0-52.0); HEMOGLOBIN. 7.5 g/dL (14.0-18.0); LYMPHOCYTES % 16.8 % (20.0-50.0); MEAN CORPUSCULAR HEMOGLOBIN 27.8 pg (28.0-32.0); MEAN CORPUSCULAR VOLUME 82.3 fL (80.0-94.0); MEAN PLATELET VOLUME 6.4 fl (7.4-10.4); MONOCYTES % 7.4 % (2.0-8.0); NEUTROPHILS % 71.1 % (40.0-76.0); PLATELET 387 x1000/uL (130-400); RED BLOOD CELL COUNT 2.69 mill/uL (4.7-6.1); RED CELL DISTRIBUTION WIDTH 17.1 % (11.6-14.6)
[2022-11-24] MEDS: AMLODIPINE 10MG TABLET PO SCH (10:29)
[2022-11-24 15:08] LABS: HEPATITIS B SURFACE ANTIGEN NEGATIVE
[2022-11-24] MEDS: EPOETIN ALFA-EPBX 4,000 UNIT/ML VIAL SUBCUT SCH (21:00)
[2022-11-24] MEDS: LORAZEPAM 1MG TABLET PO PRN (21:15)
[2022-11-25] VITALS: BP 113/80
[2022-11-25] MEDS: LORAZEPAM 1MG TABLET PO PRN ×2 (01:53→02:01)
[2022-11-25 04:00] VITALS: BP 129/75
[2022-11-25] MEDS: HYDRALAZINE HCL 100MG TABLET PO SCH ×3 (06:00→21:14)
[2022-11-25 08:00] VITALS: BP 142/88
[2022-11-25] MEDS: AMLODIPINE 10MG TABLET PO SCH (08:35)
[2022-11-25] MEDS ORDERED: HYDR100T26 PO (11:11)
[2022-11-25] MEDS ORDERED: EPOE40009 SUBCUT (11:11)
[2022-11-25] MEDS ORDERED: TOPUD PO (11:11)
[2022-11-25] MEDS ORDERED: AMLO10TA80 PO (11:11)
[2022-11-25 12:00] VITALS: BP 129/75
[2022-11-25 15:24] LABS: BASOPHILS % 0.8 % (0.0-2.0); EOSINOPHILS % 3.7 % (0.0-5.0); HEMATOCRIT. 21.1 % (42.0-52.0); LYMPHOCYTES % 19.1 % (20.0-50.0); MEAN CORPUSCULAR HEMOGLOBIN 26.9 pg (28.0-32.0); MEAN CORPUSCULAR VOLUME 83.1 fL (80.0-94.0); MEAN PLATELET VOLUME 6.4 fl (7.4-10.4); MONOCYTES % 7.4 % (2.0-8.0); PLATELET 395 x1000/uL (130-400); RED BLOOD CELL COUNT 2.54 mill/uL (4.7-6.1); RED CELL DISTRIBUTION WIDTH 17.5 % (11.6-14.6)
[2022-11-25 15:57] LABS: HEMOGLOBIN. 6.8 g/dL (14.0-18.0)
[2022-11-25 16:00] VITALS: BP 132/73
[2022-11-25 16:26] LABS: PHOSPHORUS 8.3 mg/dL (2.5-4.9)
[2022-11-25 16:33] LABS: HEMATOCRIT 21.1 % (42.0-52.0)
[2022-11-25 19:18] LABS: HEMATOCRIT 22.1 % (42.0-52.0); HEMOGLOBIN 7.3 g/dL (14.0-18.0); MEAN CORPUSCULAR HEMOGLOBIN 27.2 pg (28.0-32.0); MEAN CORPUSCULAR VOLUME 82.7 fL (80.0-94.0); PLATELET 432 x1000/uL (130-400); RED BLOOD CELL COUNT 2.67 mill/uL (4.7-6.1); RED CELL DISTRIBUTION WIDTH 16.9 % (11.6-14.6)
[2022-11-25 20:00] VITALS: BP 134/79
[2022-11-25 20:33] LABS: PHOSPHORUS 8.6 mg/dL (2.5-4.9)
[2022-11-26] VITALS (22 sets, daily range): BP systolic 117–152; BP diastolic 60–90
[2022-11-26] MEDS: HYDRALAZINE HCL 100MG TABLET PO SCH ×3 (05:53→21:24)
[2022-11-26 08:06] LABS: BASOPHILS % 0.4 % (0.0-2.0); EOSINOPHILS % 4.3 % (0.0-5.0); HEMATOCRIT. 24.6 % (42.0-52.0); HEMOGLOBIN. 8.1 g/dL (14.0-18.0); LYMPHOCYTES % 17.8 % (20.0-50.0); MEAN PLATELET VOLUME 6.5 fl (7.4-10.4); NEUTROPHILS % 70.5 % (40.0-76.0); PLATELET 420 x1000/uL (130-400); RED CELL DISTRIBUTION WIDTH 16.8 % (11.6-14.6)
[2022-11-26] MEDS: AMLODIPINE 10MG TABLET PO SCH (08:37)
[2022-11-26] MEDS: CALCIUM ACETATE 667MG CAPSULE PO SCH ×3 (08:38→17:07)
[2022-11-26] MEDS: EPOETIN ALFA-EPBX 4,000 UNIT/ML VIAL SUBCUT SCH (21:23)
[2022-11-27] VITALS: BP 147/85
[2022-11-27 04:00] VITALS: BP 144/85
[2022-11-27] MEDS: HYDRALAZINE HCL 100MG TABLET PO SCH ×2 (06:18→12:21)
[2022-11-27 08:00] VITALS: BP 133/89
[2022-11-27] MEDS: CALCIUM ACETATE 667MG CAPSULE PO SCH ×2 (08:26→12:21)
[2022-11-27] MEDS: AMLODIPINE 10MG TABLET PO SCH (08:26)
[2022-11-27 10:13] VITALS: BP 130/90
[2022-11-27 12:00] VITALS: BP 126/85
== END 2022-11-27 14:05 | DRG 299 ==
LOC: ER 18:56 → MICUSO 22:26 → EDBEDREQ 22:52 → EDBEDREQTM 22:52 → 8WST 11-23 22:39
PROVIDERS: ADMIT Internal Medicine; ATTEND Internal Medicine
PROC: 5A1D70Z Performance of Urinary Filtration, Intermittent, Less than 6 Hours Per Day (ICD-10-PCS; 2022-11-24)
PROC: 30233N1 Transfusion of Nonautologous Red Blood Cells into Peripheral Vein, Percutaneous Approach (ICD-10-PCS; principal; 2022-11-26)
PROC: 5A1D70Z Performance of Urinary Filtration, Intermittent, Less than 6 Hours Per Day (ICD-10-PCS; 2022-11-26)
DX: I77.82 Antineutrophilic cytoplasmic antibody [ANCA] vasculitis (principal); E43 Unspecified severe protein-calorie malnutrition; N18.6 End stage renal disease; I96 Gangrene, not elsewhere classified; I13.2 Hypertensive heart and chronic kidney disease with heart failure and with stage 5 chronic kidney disease, or end stage renal disease; Z68.1 Body mass index [BMI] 19.9 or less, adult; I50.9 Heart failure, unspecified; Z20.822 Contact with and (suspected) exposure to COVID-19; K21.9 Gastro-esophageal reflux disease without esophagitis; D63.1 Anemia in chronic kidney disease; M10.9 Gout, unspecified; F03.90 Unspecified dementia, unspecified severity, without behavioral disturbance, psychotic disturbance, mood disturbance, and anxiety; F32.A Depression, unspecified; F17.200 Nicotine dependence, unspecified, uncomplicated; Z91.15 Patient's noncompliance with renal dialysis; Z79.899 Other long term (current) drug therapy; Z99.2 Dependence on renal dialysis; Z82.49 Family history of ischemic heart disease and other diseases of the circulatory system
CPT/HCPCS: 36415; 71045; 80048; 80053; 82040; 83735; 84100; 84134; 85014; 85018; 85025; 85027; 86705; 86709; 86803; 86850; 86900; 86920; 87340; 87426; 90935; 97162; 99285; C1893; J0360; J0885; P9016

== ENCOUNTER 2022-12-06 09:06 | Inpatient (IN) | payer MEDICARE ==
[~2022-12-06] VITALS: Ht 182.9 cm; Wt 65.9 kg
[~2022-12-06 09:06] MED LIST changes: -ACET-2708 MT; +AMLO10TA80 PO; -AMLO5TAB88 PO; -AZAT50TA18 PO; -CALC667C PO; -CLON0.1T PO; +EPOE40009 SUBCUT; -FAMO-135 PO; -FERR325T6 PO; +HYDR100T26 PO; -IPRA3AMP31 IH; -LACT10SO30 MT; -LEVO-65 PO; -MEMA10TA55 PO; -P20 PO; -RISP1 PO; -SEVE800T25 PO; -SULF1TAB48 PO; +TOPUD PO; -TRAZ-251 PO; -VALP250C3 PO
[2022-12-06 10:01] LABS: BASOPHILS % 0.5 % (0.0-2.0); EOSINOPHILS % 0.3 % (0.0-5.0); LYMPHOCYTES % 9.8 % (20.0-50.0); MEAN CORPUSCULAR HEMOGLOBIN 26.9 pg (28.0-32.0); MEAN CORPUSCULAR VOLUME 82.5 fL (80.0-94.0); MEAN PLATELET VOLUME 6.4 fl (7.4-10.4); MONOCYTES % 5.1 % (2.0-8.0); NEUTROPHILS % 84.3 % (40.0-76.0); PLATELET 345 x1000/uL (130-400); RED BLOOD CELL COUNT 2.22 mill/uL (4.7-6.1)
[2022-12-06 10:11] LABS: CHLORIDE 101 mEq/L (98-107)
[2022-12-06] MEDS ORDERED: PIPERACILLIN/TAZOBACTAM 3.375GM/50ML PREMIX IV ONE (10:15)
[2022-12-06] MEDS ORDERED: SODIUM CHLORIDE 0.9% 250 ML IV ONE (10:15)
[2022-12-06] MEDS ORDERED: PIPERACILLIN/TAZ 3.375G PREMIX 50 ML IV NR (10:30)
[2022-12-06] MEDS ORDERED: VANCOMYCIN 1G PREMIX 200 ML IV NR (10:30)
[2022-12-06 10:45] LABS: HEMATOCRIT. 18.3 % (42.0-52.0); PROTHROMBIN TIME 11.1 sec (9.6-11.0)
[2022-12-06] MEDS ORDERED: PANTOPRAZOLE SODIUM 40 MG/VIAL IV ONE (11:15)
[2022-12-06] MEDS ORDERED: NITROGLYCERIN 0.4MG TABLET SL SL PRN (14:45)
[2022-12-06] MEDS ORDERED: ONDANSETRON HCL 4MG/2ML INJ IV PRN (14:45)
[2022-12-06] MEDS ORDERED: DOCUSATE SODIUM 100MG CAPSULE PO PRN (14:45)
[2022-12-06] MEDS ORDERED: CLONIDINE 0.1MG TABLET PO PRN (14:45)
[2022-12-06] MEDS ORDERED: GUAIFENESIN 200MG/10ML SUGAR FREE UDC PO PRN (14:45)
[2022-12-06] MEDS ORDERED: ACETAMINOPHEN 325MG TABLET PO PRN ×2 (14:45)
[2022-12-06] MEDS ORDERED: TRAMADOL 50MG TABLET PO PRN (14:45)
[2022-12-06] MEDS ORDERED: ZOLPIDEM TARTRATE 5MG TABLET PO PRN (14:45)
[2022-12-06] MEDS ORDERED: MAGNESIUM/ALUMINUM HYDROXIDE/SIMETHICONE 30ML UDC PO PRN (14:45)
[2022-12-06] MEDS ORDERED: IPRATROPIUM/ALBUTEROL 0.5-3(2.5)MG/3ML NEB NEB PRN (14:45)
[2022-12-06] MEDS ORDERED: NALOXONE HCL 0.4MG/ML VIAL IV PRN (15:00)
[2022-12-06] MEDS ORDERED: IPRATROPIUM BROMIDE (0.02%) 0.5MG/2.5ML NEB HHN PRN (15:00)
[2022-12-06] MEDS ORDERED: MEROPENEM 1,000 MG in SODIUM CHLORIDE 0.9% 100 ML IV SCH (15:00)
[2022-12-06] MEDS ORDERED: ALBUTEROL (0.083%) 2.5MG/3ML NEB HHN PRN (15:00)
[2022-12-06] MEDS: SEVELAMER CARBONATE 800 MG TABLET PO SCH (17:00)
[2022-12-06 17:20] LABS: TOTAL IRON BINDING CAPACITY 168 ug/dL (250-450)
[2022-12-06 17:43] LABS: FOLIC ACID (FOLATE) SERUM 8.2 ng/mL (>5.38)
[2022-12-06 18:22] VITALS: BP 119/60
[2022-12-06 20:13] VITALS: BP 134/79
[2022-12-07] VITALS (23 sets, daily range): BP systolic 129–174; BP diastolic 60–96
[2022-12-07] MEDS: SEVELAMER CARBONATE 800 MG TABLET PO SCH ×3 (07:46→22:07)
[2022-12-07] MEDS: PANTOPRAZOLE SODIUM 40 MG/VIAL IV SCH (08:15)
[2022-12-07 10:03] LABS: BASOPHILS % 1.6 % (0.0-2.0); EOSINOPHILS % 1.4 % (0.0-5.0); HEMATOCRIT. 25.9 % (42.0-52.0); HEMOGLOBIN. 8.9 g/dL (14.0-18.0); LYMPHOCYTES % 8.6 % (20.0-50.0); MEAN CORPUSCULAR VOLUME 84.2 fL (80.0-94.0); MEAN PLATELET VOLUME 6.2 fl (7.4-10.4); MONOCYTES % 4.2 % (2.0-8.0); NEUTROPHILS % 84.2 % (40.0-76.0); PLATELET 310 x1000/uL (130-400); RED BLOOD CELL COUNT 3.07 mill/uL (4.7-6.1); RED CELL DISTRIBUTION WIDTH 17.1 % (11.6-14.6)
[2022-12-07] MEDS ORDERED: MEROPENEM 1,000 MG in SODIUM CHLORIDE 0.9% 100 ML IV SCH (14:00)
[2022-12-07] MEDS ORDERED: VANCOMYCIN 750MG PREMIX 150 ML IV NR (15:00)
[2022-12-07 17:32] LABS: CHLORIDE 99 mEq/L (98-107)
[2022-12-07 17:40] LABS: PHOSPHORUS 4.2 mg/dL (2.5-4.9)
[2022-12-07] MEDS: MEROPENEM 500MG in NORMAL SALINE 50ML IV SCH (22:07)
[2022-12-07] MEDS: EPOETIN ALFA-EPBX 4,000 UNIT/ML VIAL SUBCUT SCH (22:07)
[2022-12-08] VITALS: BP 169/95
[2022-12-08 03:49] LABS: BASOPHILS % 0.4 % (0.0-2.0); EOSINOPHILS % 1.9 % (0.0-5.0); HEMATOCRIT. 27.7 % (42.0-52.0); HEMOGLOBIN. 9.3 g/dL (14.0-18.0); LYMPHOCYTES % 9.5 % (20.0-50.0); MEAN CORPUSCULAR HEMOGLOBIN 28.1 pg (28.0-32.0); MEAN CORPUSCULAR VOLUME 83.4 fL (80.0-94.0); MEAN PLATELET VOLUME 6.5 fl (7.4-10.4); MONOCYTES % 5.7 % (2.0-8.0); NEUTROPHILS % 82.5 % (40.0-76.0); PLATELET 316 x1000/uL (130-400); RED BLOOD CELL COUNT 3.32 mill/uL (4.7-6.1); RED CELL DISTRIBUTION WIDTH 17.3 % (11.6-14.6)
[2022-12-08 03:57] LABS: PROTHROMBIN TIME 11.2 sec (9.6-11.0)
[2022-12-08 04:00] VITALS: BP 166/96
[2022-12-08 04:04] LABS: PHOSPHORUS 4.2 mg/dL (2.5-4.9)
[2022-12-08] MEDS: SEVELAMER CARBONATE 800 MG TABLET PO SCH ×3 (07:20→17:24)
[2022-12-08 08:00] VITALS: BP 162/78
[2022-12-08] MEDS: PANTOPRAZOLE SODIUM 40 MG/VIAL IV SCH (09:19)
[2022-12-08] MEDS ORDERED: PROPOFOL 200MG/20ML VIAL IV ONE (11:49)
[2022-12-08 14:00] VITALS: BP 159/89
[2022-12-08 16:00] VITALS: BP 151/84
[2022-12-08] MEDS: SUCRALFATE 1 G/10 ML UDC PO SCH ×2 (16:50→22:31)
[2022-12-08 20:00] VITALS: BP 138/92
[2022-12-08] MEDS: MEROPENEM 500MG in NORMAL SALINE 50ML IV SCH (22:29)
[2022-12-09] VITALS (12 sets, daily range): BP systolic 90–143; BP diastolic 54–96
[2022-12-09] MEDS: SUCRALFATE 1 G/10 ML UDC PO SCH ×4 (06:13→22:01)
[2022-12-09 06:52] LABS: BASOPHILS % 0.6 % (0.0-2.0); EOSINOPHILS % 0.1 % (0.0-5.0); HEMATOCRIT. 28.8 % (42.0-52.0); HEMOGLOBIN. 9.4 g/dL (14.0-18.0); MEAN CORPUSCULAR HEMOGLOBIN 27.8 pg (28.0-32.0); MEAN PLATELET VOLUME 6.9 fl (7.4-10.4); MONOCYTES % 4.9 % (2.0-8.0); NEUTROPHILS % 85.4 % (40.0-76.0); PLATELET 377 x1000/uL (130-400); RED BLOOD CELL COUNT 3.38 mill/uL (4.7-6.1); RED CELL DISTRIBUTION WIDTH 17.4 % (11.6-14.6)
[2022-12-09] MEDS: SEVELAMER CARBONATE 800 MG TABLET PO SCH ×3 (07:58→17:40)
[2022-12-09] MEDS: PANTOPRAZOLE SODIUM 40 MG/VIAL IV SCH (07:58)
[2022-12-09] MEDS ORDERED: FUROSEMIDE 100MG/10ML VIAL IVP NR (08:45)
[2022-12-09 10:04] LABS: BG BASE EXCESS -1.5 mmol/L (-2.0-2.0); BG CARBOXYHEMOGLOBIN 1.2 % (0.5-1.5); BG DEOXYHEMOGLOBIN 34.1 % (0.0-5.0); BG FRACTION INSPIRED OXYGEN 40; BG METHEMOGLOBIN 0.3 % (0.0-1.5); BG OXYGEN SATURATION 65.4 % (92.0-98.5); BG OXYHEMOGLOBIN 64.4 % (94.0-97.0); BG PCO2 27.5 mmHg (35.0-45.0); BG PH 7.501 (7.350-7.450); BG SAMPLE SITE LEFT BRACHIAL; BG TOTAL HEMOGLOBIN 8.9 g/dL (12.0-18.0); BG VENT MODE NASAL CANNULA
[2022-12-09] MEDS ORDERED: LACTULOSE 20G/30ML UDC PO NR (13:00)
[2022-12-09] MEDS ORDERED: METHYLPREDNISOLONE SOD SUCC 40 MG/ML VIAL IV SCH ×2 (14:00)
[2022-12-09] MEDS ORDERED: METHYLPREDNISOLONE SOD SUCC 125 MG/2 ML VIAL IV SCH (14:00)
[2022-12-09 16:09] LABS: BG BASE EXCESS 2.4 mmol/L (-2.0-2.0); BG CARBOXYHEMOGLOBIN 1.2 % (0.5-1.5); BG DEOXYHEMOGLOBIN 4.2 % (0.0-5.0); BG HCO3 ACT 25.2 mmol/L (22.0-26.0); BG METHEMOGLOBIN 0.3 % (0.0-1.5); BG OXYGEN SATURATION 95.7 % (92.0-98.5); BG OXYHEMOGLOBIN 94.3 % (94.0-97.0); BG PCO2 31.8 mmHg (35.0-45.0); BG PH 7.517 (7.350-7.450); BG PO2 79.5 mmHg (75.0-100.0); BG SAMPLE SITE RIGHT RADIAL; BG TOTAL HEMOGLOBIN 8.6 g/dL (12.0-18.0); BG VENT MODE MASK - NRB
[2022-12-09] MEDS ORDERED: AZITHROMYCIN 500 MG TABLET PO ONE (16:30)
[2022-12-09] MEDS ORDERED: FUROSEMIDE 40MG/4ML VIAL ONE (16:47)
[2022-12-09] MEDS ORDERED: FUROSEMIDE 40MG/4ML VIAL IVP NR (17:15)
[2022-12-09] MEDS: METHYLPREDNISOLONE SOD SUCC 125 MG/2 ML VIAL IV SCH ×2 (17:31→21:59)
[2022-12-09] MEDS: DOCUSATE SODIUM 100MG CAPSULE PO SCH (17:40)
[2022-12-09] MEDS ORDERED: SODIUM CHLORIDE 10% FOR INH 15ML VIAL NEB INH NR (18:00)
[2022-12-09] MEDS ORDERED: DOXYCYCLINE 100 MG in DEXT 5% WATER 100 ML IV SCH (18:00)
[2022-12-09] MEDS: MEROPENEM 500MG in NORMAL SALINE 50ML IV SCH (21:59)
[2022-12-09] MEDS: SULFAMETHOXAZOLE/TRIMETHOPRIM 800/160MG TABLET PO SCH (22:00)
[2022-12-09] MEDS: EPOETIN ALFA-EPBX 4,000 UNIT/ML VIAL SUBCUT SCH (22:01)
[2022-12-10] VITALS (12 sets, daily range): BP systolic 79–121; BP diastolic 55–76
[2022-12-10] MEDS: METHYLPREDNISOLONE SOD SUCC 125 MG/2 ML VIAL IV SCH ×4 (04:45→21:43)
[2022-12-10] MEDS: SEVELAMER CARBONATE 800 MG TABLET PO SCH ×3 (07:32→17:20)
[2022-12-10] MEDS: SUCRALFATE 1 G/10 ML UDC PO SCH ×4 (07:33→21:42)
[2022-12-10 08:25] LABS: BASOPHILS % 0.2 % (0.0-2.0); HEMOGLOBIN. 7.9 g/dL (14.0-18.0); LYMPHOCYTES % 9.4 % (20.0-50.0); MEAN CORPUSCULAR VOLUME 84.5 fL (80.0-94.0); MEAN PLATELET VOLUME 6.9 fl (7.4-10.4); MONOCYTES % 1.4 % (2.0-8.0); PLATELET 309 x1000/uL (130-400); RED BLOOD CELL COUNT 2.73 mill/uL (4.7-6.1); RED CELL DISTRIBUTION WIDTH 17.3 % (11.6-14.6)
[2022-12-10 08:50] LABS: PHOSPHORUS 7.2 mg/dL (2.5-4.9)
[2022-12-10] MEDS ORDERED: AZITHROMYCIN 250 MG TABLET PO SCH (09:00)
[2022-12-10] MEDS: SULFAMETHOXAZOLE/TRIMETHOPRIM 800/160MG TABLET PO SCH ×2 (09:13→21:43)
[2022-12-10] MEDS: PANTOPRAZOLE SODIUM 40 MG/VIAL IV SCH (09:13)
[2022-12-10] MEDS: IRON SUCROSE COMPLEX 100 MG/5 ML ML IV SCH (09:13)
[2022-12-10] MEDS: DOCUSATE SODIUM 100MG CAPSULE PO SCH ×2 (09:13→17:00)
[2022-12-10 10:49] LABS: FOLIC ACID (FOLATE) SERUM 5.2 ng/mL (>5.38)
[2022-12-10] MEDS ORDERED: LIDOCAINE HCL 1% 30ML VIAL (10MG/ML) ONE (14:43)
[2022-12-10] MEDS ORDERED: HEPARIN 1000 UNITS/ML 10ML ONE (14:43)
[2022-12-10] MEDS ORDERED: VANCOMYCIN 750MG PREMIX 150 ML IV NR (21:00)
[2022-12-10] MEDS: MEROPENEM 500MG in NORMAL SALINE 50ML IV SCH (21:43)
[2022-12-11] VITALS: BP 93/55
[2022-12-11 04:00] VITALS: BP 103/60
[2022-12-11] MEDS: METHYLPREDNISOLONE SOD SUCC 125 MG/2 ML VIAL IV SCH ×4 (05:27→21:25)
[2022-12-11] MEDS: SUCRALFATE 1 G/10 ML UDC PO SCH ×4 (06:34→21:24)
[2022-12-11 06:57] LABS: HEMATOCRIT. 21.4 % (42.0-52.0); HEMOGLOBIN. 7.1 g/dL (14.0-18.0); MEAN CORPUSCULAR HEMOGLOBIN 27.8 pg (28.0-32.0); MEAN CORPUSCULAR VOLUME 83.8 fL (80.0-94.0); PLATELET 279 x1000/uL (130-400); RED BLOOD CELL COUNT 2.55 mill/uL (4.7-6.1); RED CELL DISTRIBUTION WIDTH 17.2 % (11.6-14.6)
[2022-12-11] MEDS: SEVELAMER CARBONATE 800 MG TABLET PO SCH ×3 (07:20→17:43)
[2022-12-11 07:32] LABS: PHOSPHORUS 6.3 mg/dL (2.5-4.9)
[2022-12-11 08:00] VITALS: BP 106/59
[2022-12-11] MEDS ORDERED: SODIUM CHLORIDE 10% FOR INH 15ML VIAL NEB INH SCH (09:00)
[2022-12-11] MEDS: PANTOPRAZOLE SODIUM 40 MG/VIAL IV SCH (09:58)
[2022-12-11] MEDS: DOCUSATE SODIUM 100MG CAPSULE PO SCH ×2 (09:59→17:39)
[2022-12-11] MEDS: SULFAMETHOXAZOLE/TRIMETHOPRIM 800/160MG TABLET PO SCH ×2 (09:59→21:25)
[2022-12-11] MEDS: IRON SUCROSE COMPLEX 100 MG/5 ML ML IV SCH (09:59)
[2022-12-11] MEDS: FOLIC ACID 1MG TABLET PO SCH (09:59)
[2022-12-11] MEDS: MIDODRINE HCL 5MG TABLET PO SCH ×3 (10:15→17:39)
[2022-12-11] MEDS ORDERED: ALTEPLASE 2MG/VIAL ITC NR (11:00)
[2022-12-11 11:17] LABS: NUCLEATED RED BLOOD CELLS 1 /100 WBC
[2022-12-11 11:18] LABS: PLATELET ESTIMATE NORMAL
[2022-12-11 12:00] VITALS: BP 166/66
[2022-12-11 16:00] VITALS: BP 104/65
[2022-12-11 20:00] VITALS: BP 120/75
[2022-12-11] MEDS: MEROPENEM 500 MG in SODIUM CHLORIDE 0.9% 50 ML IV SCH (21:25)
[2022-12-12] VITALS (8 sets, daily range): BP systolic 109–121; BP diastolic 42–88
[2022-12-12] MEDS: METHYLPREDNISOLONE SOD SUCC 125 MG/2 ML VIAL IV SCH ×4 (04:12→21:57)
[2022-12-12 06:05] LABS: MEAN CORPUSCULAR VOLUME 83.7 fL (80.0-94.0); MEAN PLATELET VOLUME 6.8 fl (7.4-10.4); PLATELET 265 x1000/uL (130-400); RED BLOOD CELL COUNT 2.29 mill/uL (4.7-6.1); RED CELL DISTRIBUTION WIDTH 17.4 % (11.6-14.6)
[2022-12-12] MEDS: SUCRALFATE 1 G/10 ML UDC PO SCH ×4 (06:15→22:12)
[2022-12-12 06:36] LABS: PHOSPHORUS 7.5 mg/dL (2.5-4.9)
[2022-12-12 07:53] LABS: HEMATOCRIT. 19.1 % (42.0-52.0); HEMOGLOBIN. 6.4 g/dL (14.0-18.0)
[2022-12-12] MEDS: IRON SUCROSE COMPLEX 100 MG/5 ML ML IV SCH (09:00)
[2022-12-12] MEDS: SULFAMETHOXAZOLE/TRIMETHOPRIM 800/160MG TABLET PO SCH (09:00)
[2022-12-12] MEDS: DOCUSATE SODIUM 100MG CAPSULE PO SCH ×2 (09:00→19:41)
[2022-12-12] MEDS: SEVELAMER CARBONATE 800 MG TABLET PO SCH ×3 (09:00→19:41)
[2022-12-12] MEDS: MIDODRINE HCL 5MG TABLET PO SCH ×3 (10:39→19:44)
[2022-12-12] MEDS: FOLIC ACID 1MG TABLET PO SCH (10:39)
[2022-12-12] MEDS: PANTOPRAZOLE SODIUM 40 MG/VIAL IV SCH (10:43)
[2022-12-12 13:06] LABS: PLATELET ESTIMATE NORMAL
[2022-12-12] MEDS: MEROPENEM 500 MG in SODIUM CHLORIDE 0.9% 50 ML IV SCH (21:57)
[2022-12-12] MEDS: EPOETIN ALFA-EPBX 4,000 UNIT/ML VIAL SUBCUT SCH (21:58)
[2022-12-12] MEDS: SULFAMETHOXAZOLE/TRIMETHOPRIM 400/80MG TAB PO SCH (22:12)
[2022-12-13] VITALS (20 sets, daily range): BP systolic 104–154; BP diastolic 62–92
[2022-12-13] MEDS: METHYLPREDNISOLONE SOD SUCC 125 MG/2 ML VIAL IV SCH ×4 (05:28→23:18)
[2022-12-13 05:49] LABS: HEMATOCRIT. 22.6 % (42.0-52.0); HEMOGLOBIN. 7.6 g/dL (14.0-18.0); MEAN CORPUSCULAR HEMOGLOBIN 28.8 pg (28.0-32.0); MEAN CORPUSCULAR VOLUME 85.2 fL (80.0-94.0); MEAN PLATELET VOLUME 6.7 fl (7.4-10.4); PLATELET 251 x1000/uL (130-400); RED BLOOD CELL COUNT 2.65 mill/uL (4.7-6.1); RED CELL DISTRIBUTION WIDTH 17.1 % (11.6-14.6)
[2022-12-13] MEDS: SUCRALFATE 1 G/10 ML UDC PO SCH ×4 (06:37→21:34)
[2022-12-13 08:27] LABS: BG BASE EXCESS 0.2 mmol/L (-2.0-2.0); BG CARBOXYHEMOGLOBIN 1.9 % (0.5-1.5); BG DEOXYHEMOGLOBIN 1.7 % (0.0-5.0); BG FRACTION INSPIRED OXYGEN 100; BG HCO3 ACT 25.3 mmol/L (22.0-26.0); BG METHEMOGLOBIN 0.3 % (0.0-1.5); BG OXYGEN SATURATION 98.3 % (92.0-98.5); BG OXYHEMOGLOBIN 96.1 % (94.0-97.0); BG PCO2 42.9 mmHg (35.0-45.0); BG PH 7.388 (7.350-7.450); BG PO2 110.4 mmHg (75.0-100.0); BG SAMPLE SITE LEFT BRACHIAL; BG TOTAL HEMOGLOBIN 7.4 g/dL (12.0-18.0); BG VENT MODE MASK - NRB
[2022-12-13] MEDS: DOCUSATE SODIUM 100MG CAPSULE PO SCH ×2 (09:41→17:31)
[2022-12-13] MEDS: SULFAMETHOXAZOLE/TRIMETHOPRIM 400/80MG TAB PO SCH ×2 (09:41→21:35)
[2022-12-13] MEDS: PANTOPRAZOLE SODIUM 40 MG/VIAL IV SCH (09:41)
[2022-12-13] MEDS: SEVELAMER CARBONATE 800 MG TABLET PO SCH ×3 (09:41→17:32)
[2022-12-13] MEDS: FOLIC ACID 1MG TABLET PO SCH (09:41)
[2022-12-13] MEDS: MIDODRINE HCL 5MG TABLET PO SCH ×3 (09:43→17:31)
[2022-12-13 10:38] LABS: PLATELET ESTIMATE NORMAL
[2022-12-13] MEDS ORDERED: LIDOCAINE HCL 1% 10 MG/ML 10ML VIAL ONE (11:03)
[2022-12-13] MEDS: IPRATROPIUM BROMIDE (0.02%) 0.5MG/2.5ML NEB HHN SCH ×2 (12:51→20:09)
[2022-12-13] MEDS: ALBUTEROL (0.083%) 2.5MG/3ML NEB HHN SCH ×2 (12:51→20:09)
[2022-12-13] MEDS ORDERED: HEPARIN SODIUM 1,000 UNIT/1ML VIAL IV NR (13:30)
[2022-12-13] MEDS: MEROPENEM 500 MG in SODIUM CHLORIDE 0.9% 50 ML IV SCH (21:35)
[2022-12-14] VITALS (16 sets, daily range): BP systolic 118–152; BP diastolic 61–81
[2022-12-14] MEDS: IPRATROPIUM BROMIDE (0.02%) 0.5MG/2.5ML NEB HHN SCH ×3 (01:48→15:41)
[2022-12-14] MEDS: ALBUTEROL (0.083%) 2.5MG/3ML NEB HHN SCH ×3 (01:48→15:40)
[2022-12-14] MEDS ORDERED: ZINC220C6 (04:20)
[2022-12-14] MEDS ORDERED: ONDA4TAB11 PO (04:20)
[2022-12-14] MEDS ORDERED: BISA10SU62 RC (04:20)
[2022-12-14] MEDS ORDERED: CALC667C MT (04:20)
[2022-12-14] MEDS ORDERED: TRAM50TA3 PO (04:20)
[2022-12-14] MEDS ORDERED: LORA-250 PO (04:20)
[2022-12-14] MEDS ORDERED: DOCU-138 PO (04:20)
[2022-12-14] MEDS ORDERED: ASCO500C18 PO (04:20)
[2022-12-14] MEDS ORDERED: FERR325T6 PO (04:20)
[2022-12-14] MEDS ORDERED: TOPUD PO (04:20)
[2022-12-14] MEDS ORDERED: NEPVIT MT (04:20)
[2022-12-14 06:13] LABS: HEMATOCRIT. 23.1 % (42.0-52.0); HEMOGLOBIN. 7.8 g/dL (14.0-18.0); MEAN CORPUSCULAR HEMOGLOBIN 28.9 pg (28.0-32.0); MEAN CORPUSCULAR VOLUME 85.9 fL (80.0-94.0); MEAN PLATELET VOLUME 6.6 fl (7.4-10.4); PLATELET 271 x1000/uL (130-400); RED BLOOD CELL COUNT 2.69 mill/uL (4.7-6.1); RED CELL DISTRIBUTION WIDTH 17.3 % (11.6-14.6)
[2022-12-14 06:22] LABS: PHOSPHORUS 6.4 mg/dL (2.5-4.9)
[2022-12-14] MEDS: METHYLPREDNISOLONE SOD SUCC 125 MG/2 ML VIAL IV SCH ×4 (07:13→21:42)
[2022-12-14] MEDS: SUCRALFATE 1 G/10 ML UDC PO SCH ×4 (07:13→21:43)
[2022-12-14] MEDS ORDERED: LIDOCAINE HCL 1% 10 MG/ML 10ML VIAL ONE ×2 (08:54→12:22)
[2022-12-14] MEDS: PANTOPRAZOLE SODIUM 40 MG/VIAL IV SCH (09:54)
[2022-12-14] MEDS: SEVELAMER CARBONATE 800 MG TABLET PO SCH ×3 (09:55→18:44)
[2022-12-14] MEDS: SULFAMETHOXAZOLE/TRIMETHOPRIM 400/80MG TAB PO SCH ×2 (09:55→21:42)
[2022-12-14] MEDS: FOLIC ACID 1MG TABLET PO SCH (09:55)
[2022-12-14] MEDS: DOCUSATE SODIUM 100MG CAPSULE PO SCH ×2 (09:55→18:44)
[2022-12-14 09:56] LABS: PLATELET ESTIMATE NORMAL
[2022-12-14] MEDS: MIDODRINE HCL 5MG TABLET PO SCH ×3 (09:56→18:44)
[2022-12-14] MEDS ORDERED: FENTANYL CITRATE/PF 50MCG/ML 2ML VIAL ONE (12:22)
[2022-12-14] MEDS ORDERED: FENTANYL CITRATE/PF 50MCG/ML 2ML VIAL IV ONE (13:30)
[2022-12-14] MEDS: MEROPENEM 500 MG in SODIUM CHLORIDE 0.9% 50 ML IV SCH (21:42)
== END 2022-12-14 22:35 | DRG 853 ==
LOC: ER 09:20 → EDBEDREQ 11:01 → MICUSO 13:00 → EDBEDREQ 13:02 → EDBEDREQTM 13:02 → EDBEDREQSVC 13:02 → 3WST 20:04
PROVIDERS: ADMIT Internal Medicine; ATTEND Internal Medicine
PROC: 0QBR0ZZ Excision of Left Toe Phalanx, Open Approach (ICD-10-PCS; principal; 2022-12-07)
PROC: 30233N1 Transfusion of Nonautologous Red Blood Cells into Peripheral Vein, Percutaneous Approach (ICD-10-PCS; 2022-12-07)
PROC: 5A1D70Z Performance of Urinary Filtration, Intermittent, Less than 6 Hours Per Day (ICD-10-PCS; 2022-12-07)
PROC: 0DB98ZX Excision of Duodenum, Via Natural or Artificial Opening Endoscopic, Diagnostic (ICD-10-PCS; 2022-12-08)
PROC: 0DB78ZX Excision of Stomach, Pylorus, Via Natural or Artificial Opening Endoscopic, Diagnostic (ICD-10-PCS; 2022-12-08)
PROC: 5A1D70Z Performance of Urinary Filtration, Intermittent, Less than 6 Hours Per Day (ICD-10-PCS; 2022-12-09)
PROC: 5A09457 Assistance with Respiratory Ventilation, 24-96 Consecutive Hours, Continuous Positive Airway Pressure (ICD-10-PCS; 2022-12-09)
PROC: 5A1D70Z Performance of Urinary Filtration, Intermittent, Less than 6 Hours Per Day (ICD-10-PCS; 2022-12-10)
PROC: 05HM33Z Insertion of Infusion Device into Right Internal Jugular Vein, Percutaneous Approach (ICD-10-PCS; 2022-12-10)
PROC: B543ZZA Ultrasonography of Right Jugular Veins, Guidance (ICD-10-PCS; 2022-12-10)
PROC: 0QBR0ZZ Excision of Left Toe Phalanx, Open Approach (ICD-10-PCS; 2022-12-13)
PROC: 5A1D70Z Performance of Urinary Filtration, Intermittent, Less than 6 Hours Per Day (ICD-10-PCS; 2022-12-13)
PROC: 0JH63XZ Insertion of Tunneled Vascular Access Device into Chest Subcutaneous Tissue and Fascia, Percutaneous Approach (ICD-10-PCS; 2022-12-14)
PROC: 02HV33Z Insertion of Infusion Device into Superior Vena Cava, Percutaneous Approach (ICD-10-PCS; 2022-12-14)
PROC: B5181ZA Fluoroscopy of Superior Vena Cava using Low Osmolar Contrast, Guidance (ICD-10-PCS; 2022-12-14)
DX: A41.9 Sepsis, unspecified organism (principal); E43 Unspecified severe protein-calorie malnutrition; N18.6 End stage renal disease; G92.8 Other toxic encephalopathy; J18.9 Pneumonia, unspecified organism; J96.01 Acute respiratory failure with hypoxia; D62 Acute posthemorrhagic anemia; I13.2 Hypertensive heart and chronic kidney disease with heart failure and with stage 5 chronic kidney disease, or end stage renal disease; Z68.1 Body mass index [BMI] 19.9 or less, adult; I96 Gangrene, not elsewhere classified; F14.90 Cocaine use, unspecified, uncomplicated; Z20.822 Contact with and (suspected) exposure to COVID-19; K76.89 Other specified diseases of liver; F03.90 Unspecified dementia, unspecified severity, without behavioral disturbance, psychotic disturbance, mood disturbance, and anxiety; K29.80 Duodenitis without bleeding; D63.1 Anemia in chronic kidney disease; E87.5 Hyperkalemia; J47.9 Bronchiectasis, uncomplicated; D50.9 Iron deficiency anemia, unspecified; K29.00 Acute gastritis without bleeding; K21.9 Gastro-esophageal reflux disease without esophagitis; I50.9 Heart failure, unspecified; Y95 Nosocomial condition; Z82.49 Family history of ischemic heart disease and other diseases of the circulatory system; Z99.2 Dependence on renal dialysis; Z87.11 Personal history of peptic ulcer disease
CPT/HCPCS: 36415; 36556; 36558; 36589; 36600; 71045; 71250; 76937; 77001; 80048; 80053; 80202; 82375; 82550; 82607; 82728; 82746; 82805; 83540; 83550; 83605; 83615; 83735; 83880; 84100; 84145; 84484; 85025; 85044; 86850; 86900; 86920; 87070; 87075; 87077; 87186; 87426; 87804; 88305; 88311; 90935; 93005; 93970; 94640; 94660; 99152; 99153; 99291; C1750; C1752; C1769; C1893; C9113; J0885; J1642; J1644; J1940; J2185; J2543; J2704; J2930; J2997; J3010; J3370; J3490; J7050; J7060; J7131; P9016; G0500